=== PATIENT | female | born 1995 | race Caucasian/White ===

== ENCOUNTER → 2018-08-19 10:54 | Emergency (ER) | payer BC ==
[~2018-08-19 10:54] MED LIST: Metoclopramide IV* 5 MG/ML 2 ML VIAL IV ONE; NS 0.9% 1000 ML** 1,000 ML IV ONE
--- NOTE | 2018-08-19 12:47 | ED ---
Nausea/Vomiting/Diarrhea HPI - HPI Summary HPI Summary: Pt. is a 23 y.o female who presents to the ER for N/V and mild diarrhea since yesterday. Pt. seen at and referred for possible dehydration. Pt. currently 13 wks gestation. She has had a confirmed IUP. Pt. denies abd. pain/cramping, urinary sxs, vaginal bleeding or dc. Denies sick contacts or recent travels. Pt. denies issue with N/V with current . Sxs are moderate in severity. No current modifying factors. - History of Current Complaint Chief Complaint: EDNauseaVomitDiarrh Stated Complaint: 13 WEEKS PREG/DEHYDRATION PER PT Time Seen by Provider: 08/19/18 12:33 Pain Intensity: 0 - Allergies/Home Medications Allergies/Adverse Reactions: Allergies Allergy/AdvReac Type Severity Reaction Status Date / Time No Known Allergies Allergy Verified 08/19/18 11:06 PMH/Surg Hx/FS Hx/Imm Hx Previously Healthy: Yes Infectious Disease History: No Infectious Disease History: Denies: Traveled Outside the [place] in Last 30 Days - Family History Known Family History: Positive: Non-Contributory - Social History Occupation: Employed Full-time Lives: With Family Alcohol Use: None Substance Use Type: Reports: None Smoking Status (MU): Never Smoked Tobacco Review of Systems Constitutional: Negative Positive: Fever Eyes: Negative ENT: Negative Cardiovascular: Negative Respiratory: Negative Positive: Vomiting, Diarrhea, Nausea. Negative: Abdominal Pain Genitourinary: Negative Neurological: Negative All Other Systems Reviewed And Are Negative: Yes Physical Exam Triage Information Reviewed: Yes Vital Signs On Initial Exam: Initial Vitals Temp Pulse Resp BP Pulse Ox 97.4 F 110 18 140/89 100 08/19/18 11:04 08/19/18 11:04 08/19/18 11:04 08/19/18 11:04 08/19/18 11:04 Vital Signs Reviewed: Yes Appearance: Positive: Well-Appearing - Pt. sitting on bed in NAD> Skin: Positive: Warm, Dry Head/Face: Positive: Normal Head/Face Inspection Eyes: Positive: Normal, EOMI ENT: Positive: Other - mucus membranes dry Neck: Positive: Supple Respiratory/Lung Sounds: Positive: Clear to Auscultation, Breath Sounds Present Cardiovascular: Positive: Normal, RRR Abdomen Description: Positive: Nontender, Soft Neurological: Positive: Normal, CN Intact II-III Psychiatric: Positive: Affect/Mood Appropriate Diagnostics - Vital Signs Vital Signs Temp Pulse Resp BP Pulse Ox 08/19/18 11:04 97.4 F 110 18 140/89 100 - Laboratory Result Diagrams: 08/19/18 12:52 08/19/18 12:52 Lab Statement: Any lab studies that have been ordered have been reviewed, and results considered in the medical decision making process. Naus/Vom/Diarrhea Course/Dx - Course Course Of Treatment: Pt. presenting with V/D. She is afebirle. SHe has a benign abd. exam without pain. Pt. was given IV fluids and basic labs and u/a obtained. Labs and u/a unremarkable other than +ketones indicating mild dehyration. Pt. tolerating PO fluids. Suspect viral etiology. WIll dc home with rx for reglan if needed. To f.u with OB and return to eR if sxs change or worsen. - Differential Dx/Diagnosis Differential Diagnoses - Female: Urinary Tract Infection, Gastroenteritis (Viral ), Gastroenteritis (Bacterial), Vomiting Provider Diagnosis: Gastroenteritis Condition At Discharge: Improved Discharge - Sign-Out/Discharge Documenting (check all that apply): Patient Departure Patient Received Moderate/Deep Sedation with Procedure: No - Discharge Plan Condition: Improved Disposition: HOME Prescriptions: Metoclopramide TAB* [Reglan TAB*] 10 mg PO Q8H #12 tab Patient Education Materials: Gastroenteritis (ED) Referrals: Jose Hummel MD [Medical Doctor] - Additional Instructions: Schedule a follow up appointment with your OB Reglan as needed for vomiting Increase fluids and rest Return to ER for fever, uncontrollable vomiting, abdominal pain or if concerned - Billing Disposition and Condition Condition: IMPROVED Disposition: Home
[2018-08-19 13:00] LABS: Hematocrit 37 % (33-41); Hemoglobin 12.5 g/dL (12.0-16.0); Mean Corpuscular HGB Conc 34 g/dL (31-36); Mean Corpuscular Hemoglobin 30 pg (27-31); Mean Corpuscular Volume 88 fL (80-97); Mean Platelet Volume 8.2 fL (7.4-10.4); Platelet Count 204 10^3/uL (150-450); Red Blood Count 4.19 10^6 /uL (3.70-4.87); Red Cell Distribution Width 13 % (10.5-15); White Blood Count 6.5 10^3/uL (3.5-10.8)
[2018-08-19 13:17] LABS: Albumin 3.9 g/dL (3.2-5.2); Albumin/Globulin Ratio 1.4 (1-3); BUN/Creatinine Ratio 18.2 (8-20); EGFR African American 165.7 (>60); Globulin 2.7 g/dL (2-4); Potassium 3.7 mmol/L (3.5-5.0); Total Bilirubin 0.5 mg/dL (0.2-1.0); Total Protein 6.6 g/dL (6.4-8.9)
[2018-08-19 14:03] VITALS: BP 102/60
[2018-08-19 14:16] LABS: Urine Appearance Cloudy; Urine Bilirubin Negative (Negative); Urine Blood Negative (Negative); Urine Color Yellow; Urine Glucose Negative (Negative); Urine Ketones 2+ (Negative); Urine Nitrite Negative (Negative); Urine Protein Negative (Negative); Urine Specific Gravity 1.016 (1.010-1.030); Urine Urobilinogen Negative (Negative)
== END | disposition home or self-care (01) ==
LOC: ED 10:54
DX: K52.9 Noninfective gastroenteritis and colitis, unspecified (principal); R11.2 Nausea with vomiting, unspecified; R19.7 Diarrhea, unspecified; Z34.91 Encounter for supervision of normal pregnancy, unspecified, first trimester
CPT/HCPCS: 36415; 80053; 81003; 85027; 96361; 96374; 99282

== ENCOUNTER 2019-02-25 03:26 | Inpatient (IN) | payer BC ==
[2019-02-25] MEDS ORDERED: Nalbuphine* 10 MG/ML 1 ML VIAL IM PRN (05:26)
[2019-02-25] MEDS ORDERED: Promethazine INJ(RESTRICTED)* 25 MG/ML 1 ML VIAL IM PRN (05:27)
[2019-02-25 05:46] LABS: Urine Benzodiazepine Screen None Detected (None Detect); Urine Opiates Screen None Detected (None Detect)
[2019-02-25] MEDS ORDERED: Lactated Ringers 1000 ML Bag* 1,000 ML IV ONE ×2 (17:49→23:21)
[2019-02-25] MEDS ORDERED: Buffered Lidocaine 1% SYRIN* 1 ML/SYRINGE INTRADERM ONE (17:49)
--- NOTE | 2019-02-25 17:59 | HP ---
General Information - Reason for Visit Leaking of fluid since 10pm 02/24/2019 with irregular contractions worse in the back - General Information Maternal Age: 23 Grav: 1 Para: 0 SAB: 0 IEA: 0 Estimated Due Date: 02/23/19 Determined By: LMP Maternal Blood Type and Rh: O Positive - Results this Serology/RPR Result: Non-Reactive Rubella Result: Immune HBsAg Result: Negative HIV Result: Negative GBS Culture Result: Negative Past Medical History Pertinent Past Medical History: Non-Contributory Pertinent Past Surgical History: None Pertinent Family History: See Records - M: ovarian CA - Antepartal Records Antepartal Records: Reviewed, Uncomplicated Review of Systems Constitutional: Uncomfortable CV Complaint: No Respiratory: Shortness of Breath: No Gastrointestinal: No Nausea/Vomiting Genitourinary: Leaking Fluid, No Dysuria, No Bleeding, Spotting Musculoskeletal: No Epigastric Pain, Contractions Neurological: No Headache, No Visual Changes Movement: Normal Exam Allergies/Adverse Reactions: Allergies No Known Allergies Allergy (Verified 02/25/19 04:15) T:97.9, P:93, R:16, BP: 132/89, O2:98% Lab Values - Entire Visit: Laboratory Tests 02/25/19 02/25/19 05:08 11:02 Vag Amniotic Fld Detect Positive Urine Opiates Screen None detected Ur Barbiturates Screen None detected Ur Phencyclidine Scrn None detected Ur Amphetamines Screen None detected U Benzodiazepines Scrn None detected Urine Cocaine Screen None detected U Cannabinoids Screen None detected - Measurements Height: 5 ft 3 in Weight: 167 lb Weight in lbs: 167.822058 Body Mass Index (BMI): 29.5 Pre- Weight: 130 lb Weight Gained This : 37 lbs and 0 ozs - Exam Breast: Breast Exam Deferred CVA: No CVA Tenderness Extremities: No Edema Heart: Normal Rhythm/Heart Sounds HEENT: No Significant Findings Lungs: Clear Bilaterally Rectal: Rectal Exam Deferred Reflexes: DTR 2+ Thyroid: No Thyromegaly - Abdominal Exam Abdomen Exam: Fundal Height Consistent with Dates - Ultrasound/Biophysical Profile Ultrasound Status: Not Done Targeted Exam Findings Estimated Weight: 8lbs Cervical Exam: 3cm, 4cm Effacement: 80% Station: -1 Presenting Part: Vertex Membrane Status: Leaking Amniotic Fluid Evaluation: Clear Bleeding/Discharge: Bloody Show EFM Findings - External Monitor Findings Baseline Heart Rate: 145 External Monitor Findings: Accelerations Present, No Pattern of Variable or Late Decelerations, Variability Moderate, Baseline Stable Contractions: Irregular, Mild, Moderate, 45-90 Seconds Contraction Frequency: 2-5 Assessment/Plan - Assessment 23 y.o. , early labor, SROM - Plan Plan: Admit - Anticipate Vaginal Delivery - Date/Time of Admission Date of Admission: 02/25/19 Time of Admission: 14:00
[2019-02-25] MEDS ORDERED: Lactated Ringers 1000 ML Bag* 1,000 ML IV SCH ×2 (18:00→23:45)
[2019-02-25] MEDS ORDERED: Oxytocin in LR* 20 UNITS/1,000 ML BAG IVPB SCH (18:00)
[2019-02-25 18:07] LABS: ABS Lymphocytes 1.7 10^3/ul (1.0-4.8); ABS Monocytes 0.6 10^3/ul (0-0.8); ABS Neutrophils 7.3 10^3/ul (1.5-7.7); Eosinophil % 0.4 %; Hematocrit 33 % (35-47); Hemoglobin 11.1 g/dL (12.0-16.0); Lymphocyte % 17.7 %; Mean Corpuscular HGB Conc 34 g/dL (31-36); Mean Corpuscular Hemoglobin 30 pg (27-31); Mean Corpuscular Volume 88 fL (80-97); Mean Platelet Volume 8.9 fL (7.4-10.4); Platelet Count 224 10^3/uL (150-450); Red Blood Count 3.67 10^6 /uL (3.70-4.87); Red Cell Distribution Width 13 % (10-15); White Blood Count 9.7 10^3/uL (3.5-10.8)
--- NOTE | 2019-02-25 22:46 | PN ---
Progress Note - Progress Note Date of Service: 02/25/19 SOAP: Subjective: Pt reports contractions are increasing in intensity and pt requests epidural. Objective: BP: 115/74, P:86, T:97.8 FHR: 150bpm Assessment: 23 y.o. , 40w1d EGA, active labor Plan: 1) Anesthesia consult for epidural 2) Reevaluate when comfortable or sooner PRN
[2019-02-25] MEDS ORDERED: Bupivacaine 0.25% SDV PF* 10 ML VIAL INJ ONE (22:48)
[2019-02-25] MEDS ORDERED: OBEPIDURAL* 250 ML EPIDURAL ONE (22:50)
[2019-02-25] MEDS ORDERED: Sodium Citrate/Citric Acid* 15 ML UDC PO PRN (23:21)
[2019-02-25] MEDS ORDERED: Phenylephrine 40 MCG/ML SYRINGE IV PUSH PRN ×2 (23:21)
[2019-02-25] MEDS ORDERED: Famotidine TAB* 20 MG PO PRN (23:21)
[2019-02-25] MEDS ORDERED: OBEPIDURAL* 250 ML EPIDURAL SCH (23:45)
[2019-02-26] MEDS ORDERED: Ondansetron INJ* 2 MG/ML VIAL IV PRN (05:53)
--- NOTE | 2019-02-26 08:44 | PN ---
Progress Note - Progress Note Date of Service: 02/26/19 - 5:00 SOAP: Subjective: Pt comfortable after epidural and reports she has been resting but still changing position every 30-45 mins. Pt denies pressure and reports continued LOF. Objective: BP:99/53, T:98.7, P:78, cervix: 7/80/-1, FHR: 150bp, + accels, -decels, moderate variability Assessment: 23 y.o. , 40w2d EGA, cat I NST, inadequate contractions Plan: 1) Start pitocin low dose 2) Con't position changes 3) Reevaluate in 2 hrs or sooner PRN
--- NOTE | 2019-02-26 08:46 | PN ---
Progress Note - Progress Note Date of Service: 02/26/19 SOAP: Subjective: Pt reports increase in pressure. Pt still comfortable. Objective: BP:122/83, P:111, R:20, T:99.1, FHR: 150 bpm, + accels, occasional early decels , moderate variability. Pitocin at 5. Assessment: 23 y.o. , cat I NST, active labor, VSS Plan: 1) Anticipate vaginal delivery 2) position changes for descent
[2019-02-26] MEDS ORDERED: Influenza VAC *QUAD* 2019-20* 0.5 ML SYRINGE IM ONE (09:00)
[2019-02-26] MEDS ORDERED: Dibucaine 1% 28.35 GM TUBE PR PRN (10:10)
[2019-02-26] MEDS ORDERED: Witch Hazel PAD* JAR TOPICAL PRN (10:10)
[2019-02-26] MEDS ORDERED: Acetaminophen TAB* 325 MG PO PRN (10:10)
[2019-02-26] MEDS ORDERED: Glycerin ADULT SUPP PR PRN (10:10)
--- NOTE | 2019-02-26 10:10 | PROCNOTE ---
[facility] OB: Delivery Note - Delivery A Date of : 02/26/19 Time of : 09:50 Sex: Male Weight at : 8 lb 9 oz Score 1 Minute: 9 Score 5 Minutes: 9 Gestational Age in Weeks and Days at Delivery: 40 Weeks and 3 Days Delivery Method: Spontaneous Vaginal Labor: Spontaneous Amniotic Fluid: Clear Estimated Blood Loss: 150 Anesthesia/Analgesia: IM/IV, CEI for Labor Delivered By: Vero Castro - Nursery Level of Nursery: Regular/Bedside - Perineum Perineal Injury Comment: left and right labial abrasions Perineal Repair: By Delivering Practioner - Events Delivery Events of Note: ROM > 24 Hours
[2019-02-26] MEDS ORDERED: Ibuprofen TAB* 600 MG ONE (10:15)
[2019-02-26] MEDS: Ibuprofen TAB* 600 MG PO PRN ×2 (10:17→17:26)
[2019-02-26] MEDS ORDERED: Lactated Ringers 1000 ML Bag* 1,000 ML IV SCH (11:00)
[2019-02-26] MEDS ORDERED: Oxytocin in LR* 20 UNITS/1,000 ML BAG IVPB SCH (11:00)
[2019-02-26] MEDS ORDERED: Simethicone TAB* 80 MG TAB.CHEW PO SCH (12:30)
[2019-02-26] MEDS: Docusate CAP* 100 MG PO SCH ×2 (14:10→21:03)
[2019-02-27] MEDS: Ibuprofen TAB* 600 MG PO PRN (00:24)
[2019-02-27 05:48] LABS: ABS Eosinophils 0.2 10^3/ul (0-0.6); ABS Lymphocytes 2.2 10^3/ul (1.0-4.8); ABS Neutrophils 9.8 10^3/ul (1.5-7.7); Eosinophil % 1.4 %; Hematocrit 30 % (35-47); Hemoglobin 9.9 g/dL (12.0-16.0); Lymphocyte % 16.8 %; Mean Corpuscular HGB Conc 33 g/dL (31-36); Mean Corpuscular Hemoglobin 30 pg (27-31); Mean Corpuscular Volume 90 fL (80-97); Mean Platelet Volume 8.5 fL (7.4-10.4); Nucleated Red Blood Cells % 0.1; Platelet Count 168 10^3/uL (150-450); Red Blood Count 3.29 10^6 /uL (3.70-4.87); Red Cell Distribution Width 13 % (10-15); White Blood Count 13.3 10^3/uL (3.5-10.8)
[2019-02-27 08:18] VITALS: BP 118/80
[2019-02-27] MEDS: Docusate CAP* 100 MG PO SCH ×2 (08:45→13:51)
[2019-02-27] MEDS ORDERED: Ferrous Gluconate TAB* 324 MG TAB PO SCH (09:00)
== END 2019-02-27 17:20 | disposition home or self-care (01) | DRG 560 ==
LOC: MCHOBOUT 03:26 → MCHOB 12:19
PROVIDERS: ADMIT Obstetrics & Gynecology; ATTEND Midwife
PROC: 10E0XZZ Delivery of Products of Conception, External Approach (ICD-10-PCS; principal; 2019-02-26)
PROC: 0HQ9XZZ Repair Perineum Skin, External Approach (ICD-10-PCS; 2019-02-26)
DX: O48.0 Post-term pregnancy (principal); Z37.0 Single live birth; Z3A.40 40 weeks gestation of pregnancy; O70.0 First degree perineal laceration during delivery; O69.2XX0 Labor and delivery complicated by other cord entanglement, with compression, not applicable or unspecified
CPT/HCPCS: 36415; 80307; 84112; 85025; 86850; 86900; 86901; 90686; A9270-GY; J2300; J2405; J2550; J3490

== ENCOUNTER 2023-04-18 02:42 | Inpatient (IN) ==
[2023-04-18] MEDS ORDERED: Lactated Ringers 1000 ml BAG 1,000 ML IV ONE ×2 (05:48→10:34)
[2023-04-18] MEDS ORDERED: Lidocaine 1% VIAL 10 MG/ML 30 ML VIAL INJ PRN (05:48)
[2023-04-18] MEDS ORDERED: Oxytocin in LR 20,000 MILLI.UNIT/1,000 ML BAG IV SCH ×2 (05:50→22:30)
[2023-04-18] MEDS ORDERED: Lactated Ringers 1000 ml BAG 1,000 ML IV SCH ×3 (06:00→23:00)
[2023-04-18 06:55] LABS: Urine Benzodiazepine Screen None Detected (None Detect); Urine Cannabinoids Screen None Detected (None Detect); Urine Opiates Screen None Detected (None Detect)
[2023-04-18 07:19] LABS: ABS Eosinophils 0.1 10^3/uL (0.0-0.5); ABS Lymphocytes 1.9 10^3/uL (1.0-4.8); ABS Monocytes 0.7 10^3/uL (0.0-0.9); ABS Neutrophils 6.1 10^3/uL (1.5-7.6); Eosinophil % 0.7 %; Hematocrit 29.8 % (35-45); Hemoglobin 10.2 g/dL (11.5-14.3); Lymphocyte % 21.4 %; Mean Corpuscular Hgb Conc 34.4 g/dL (31-36); Mean Corpuscular Volume 84.4 fL (80-97); Mean Platelet Volume 8.3 fL (7.5-11.2); Platelet Count 242 10^3/uL (150-450); Red Blood Count 3.53 10^6/uL (3.63-4.92); Red Cell Distribution Width 13.8 % (12-17); White Blood Count 8.8 10^3/uL (3.8-11.8)
[2023-04-18] MEDS ORDERED: OBEPIDURAL (200 ML) 0 ML EPIDURAL ONE (09:22)
[2023-04-18] MEDS ORDERED: Lidocaine 1.5% EPI 1:200,000 30 ML SDV ONE (09:22)
[2023-04-18] MEDS ORDERED: Phenylephrine 40 mcg/mL 10mL (400mcg) SYRINGE IV PUSH PRN (10:34)
[2023-04-18] MEDS ORDERED: Sodium Citrate/Citric Acid LIQ 15 ML UDC PO PRN (10:34)
[2023-04-18] MEDS ORDERED: Famotidine IV 10 MG/ML 2 ml VIAL (20 mg) IV SLOW PU ONE (14:35)
[2023-04-18] MEDS ORDERED: Calcium Carb (TUMS) 500 mg CHEW TAB PO PRN ×2 (14:36→19:55)
[2023-04-18] MEDS ORDERED: Lidocaine 2% JELLY 6 ML Topical TOPICAL ONE (17:09)
[2023-04-18] MEDS ORDERED: EPINEPHrine Anaphylaxis SYR CERTADOSE SYR KIT ONE (17:37)
[2023-04-18] MEDS: Phenylephrine 40 mcg/mL 10mL (400mcg) SYRINGE IV PUSH PRN ×2 (18:18→18:32)
[2023-04-18 19:06] LABS: Urine Appearance Cloudy; Urine Bilirubin Negative (Negative); Urine Blood 3+ (Negative); Urine Color Yellow; Urine Glucose Negative (Negative); Urine Ketones 2+ (Negative); Urine Nitrite Negative (Negative); Urine Protein 1+(30 mg/dL) (Negative); Urine Specific Gravity 1.017 (1.002-1.030); Urine Urobilinogen Negative (Negative)
[2023-04-18 19:22] LABS: Urine Bacteria Absent (Absent); Urine Red Blood Cell 3+(>10/hpf) (Absent); Urine Squamous Epithelial Cell Present (Absent); Urine Transitional Epithelial Present (Absent); Urine White Blood Cell 1+(6-10/hpf) (Absent)
[2023-04-18] MEDS ORDERED: Glycerin ADULT 2.4 gm SUPP PR PRN (22:27)
[2023-04-18] MEDS ORDERED: Witch Hazel PAD JAR TOPICAL PRN (22:27)
[2023-04-18] MEDS ORDERED: Dibucaine 1% OINT 28.35 GM TUBE PR PRN (22:27)
[2023-04-19] MEDS ORDERED: Phenylephrine 40 mcg/mL 10mL (400mcg) SYRINGE ONE (00:05)
[2023-04-19 09:15] LABS: ABS Basophils 0.1 10^3/uL (0.0-0.1); ABS Lymphocytes 1.8 10^3/uL (1.0-4.8); ABS Neutrophils 10.3 10^3/uL (1.5-7.6); Hematocrit 28.2 % (35-45); Hemoglobin 9.7 g/dL (11.5-14.3); Lymphocyte % 13.9 %; Mean Corpuscular Hemoglobin 28.8 pg (27-33); Mean Corpuscular Hgb Conc 34.3 g/dL (31-36); Mean Corpuscular Volume 84.1 fL (80-97); Mean Platelet Volume 8.2 fL (7.5-11.2); Platelet Count 244 10^3/uL (150-450); Red Blood Count 3.35 10^6/uL (3.63-4.92); White Blood Count 13.2 10^3/uL (3.8-11.8)
[2023-04-20 08:07] VITALS: BP 110/74
== END 2023-04-20 12:35 | disposition home or self-care (01) | DRG 807 ==
LOC: MCHOBOUT 02:42 → MCHOB 05:44
PROVIDERS: ADMIT Midwife; ATTEND Advanced Practice Midwife